=== PATIENT | female | born 1990 | race Caucasian/White ===

== ENCOUNTER 2019-04-24 15:11 | Emergency (ER) | payer OTHER ==
[~2019-04-24] VITALS: Ht 165.1 cm; Wt 61.2 kg
[2019-04-24] MEDS ORDERED: HYDR1TAB94 PO (16:45)
== END 2019-04-24 17:57 | disposition home or self-care (01) ==
LOC: ER 15:11
DX: S62.314A Displaced fracture of base of fourth metacarpal bone, right hand, initial encounter for closed fracture (principal); S70.01XA Contusion of right hip, initial encounter; S90.811A Abrasion, right foot, initial encounter; V23.4XXA Motorcycle driver injured in collision with car, pick-up truck or van in traffic accident, initial encounter
CPT/HCPCS: 73090; 73130; 73502; 73630; 96374; 96375; 96376; 99284-25; J1170; J2405